=== PATIENT | female | born 1945 | race Caucasian/White ===

== ENCOUNTER 2016-04-03 11:20 | Inpatient (IN) | payer OTHER ==
[~2016-04-03] VITALS: Ht 160 cm; Wt 83.9 kg
[~2016-04-03 11:20] MED LIST: "\\\"WATER PILL\\\""; ASPI1CPM PO; LEVO25TA9; METF500T4 PO; OMEP10SU
[2016-04-03] MEDS ORDERED: IV SET PRIMARY PUMP SET 1 EA INFUS.SET MC ONE ×2 (11:58→17:16)
[2016-04-03] MEDS ORDERED: IV NS 0.9% 1,000 ML ONE (11:58)
[2016-04-03] MEDS ORDERED: TDAP [DIPH/PERTUSSIS/TET] 0.5 ML VIAL IM ONE ×2 (11:58→12:00)
[2016-04-03] MEDS ORDERED: IV SET PRIMARY 1 EA INFUS.SET MC ONE (11:58)
[2016-04-03] MEDS ORDERED: PIPERACILLIN /TAZOBACTAM 3.375 G in IV D5W 50 ML IV ONE (12:00)
[2016-04-03] MEDS ORDERED: VANCOMYCIN 1 GM in IV D5W 250 ML IV ONE (12:00)
[2016-04-03] MEDS ORDERED: IV NS 0.9% 1,000 ML BAG IV ONE (12:00)
[2016-04-03] MEDS ORDERED: MIRT15TA PO (12:07)
[2016-04-03] MEDS ORDERED: SIMV40TA5 PO (12:07)
[2016-04-03] MEDS ORDERED: LEVO50TA8 PO (12:07)
[2016-04-03 12:12] LABS: BASOPHILS # (AUTO) 0.1 /CMM (0.0-0.2); BASOPHILS % (AUTO) 0.8 % (0.0-2.0); DIFF TOTAL % 100 %; EOSINOPHILS # (AUTO) 0.3 /CMM (0.0-0.7); HEMATOCRIT 37 % (33-45); HEMOGLOBIN 12.3 g/dL (11.5-14.8); LYMPHOCYTES # (AUTO) 1.8 /CMM (0.8-4.8); MEAN CORPUSCULAR HEMOGLOBIN 28 PG (26.0-33.0); MEAN CORPUSCULAR HGB CONC 33 g/dl (31.0-36.0); MEAN CORPUSCULAR VOLUME 84 fL (82-100); MONOCYTES # (AUTO) 0.7 /CMM (0.1-1.30); MONOCYTES % (AUTO) 7.9 % (2.0-12.0); NEUTROPHILS # (AUTO) 5.5 /CMM (1.8-8.9); NEUTROPHILS % (AUTO) 66.3 % (43.0-81.0); PLATELET COUNT (AUTO) 222 /CMM (150-450); RED BLOOD CELL COUNT(AUTO) 4.39 MIL/uL (4.0-5.2); WHITE BLOOD COUNT (AUTO) 8.3 K/uL (4.3-11.0)
[2016-04-03 12:32] LABS: LACTIC ACID 0.6 mmol/L (0.4-2.0)
[2016-04-03 12:34] LABS: INR 1.07 (0.87-1.13); PROTHROMBIN TIME 11.6 SECS (9.5-12.7)
[2016-04-03 12:36] LABS: CALCIUM, SERUM 8.6 mg/dL (8.5-10.1); CREATININE 0.8 mg/dL (0.6-1.3)
[2016-04-03 15:02] VITALS: BP 112/88
[2016-04-03] MEDS ORDERED: OXYB5TAB11 PO (15:47)
[2016-04-03] MEDS ORDERED: MAGNESIUM HYDROXIDE 30 ML UDC PO PRN (16:00)
[2016-04-03] MEDS ORDERED: ONDANSETRON HCL/PF 4 MG/2 ML VIAL IVP PRN (16:00)
[2016-04-03] MEDS ORDERED: ACETAMINOPHEN 325 MG TABLET PO PRN (16:00)
[2016-04-03] MEDS ORDERED: MAG HYDROX/AL HYDROX/SIMETH 30 ML UDC PO PRN (16:00)
[2016-04-03] MEDS ORDERED: Z GUARD REMEDY 2 OZ OINT TP PRN (16:00)
[2016-04-03] MEDS ORDERED: HYDROCODONE/APAP 5/325MG 1 EACH TABLET PO PRN (16:00)
[2016-04-03] MEDS ORDERED: ZOLPIDEM TARTRATE 5 MG TABLET PO PRN (16:00)
[2016-04-03] MEDS: OXYBUTYNIN CHLORIDE 5 MG TABLET PO SCH (16:40)
[2016-04-03] MEDS: METFORMIN 500 MG TABLET PO SCH (16:41)
[2016-04-03] MEDS: AGGRENOX(ASA/DIPYRIDAMOLE) 1 CAP CPMP.12HR PO SCH (16:56)
[2016-04-03] MEDS: PIPERACILLIN /TAZOBACTAM 3.375 G in IV D5W 50 ML IV SCH (17:14)
[2016-04-03 20:00] VITALS: BP 98/56
[2016-04-03] MEDS ORDERED: INSULIN REGULAR, HUMAN 100 UNIT/ML 3 ML VIAL SQ PRN (20:00)
[2016-04-03] MEDS ORDERED: DEXTROSE 50%-WATER 50 ML DISP.SYRIN IV PRN (20:00)
[2016-04-03] MEDS: BLOOD SUGAR DIAGNOSTIC 1 EACH STRIP IN SCH (21:37)
[2016-04-03] MEDS: MIRTAZAPINE 15 MG TABLET PO SCH (21:37)
[2016-04-03] MEDS: SIMVASTATIN 40 MG TABLET PO SCH (21:37)
[2016-04-04] MEDS: PIPERACILLIN /TAZOBACTAM 3.375 G in IV D5W 50 ML IV SCH ×5 (00:22→23:03)
[2016-04-04 05:30] VITALS: BP 90/66
[2016-04-04] MEDS ORDERED: SECONDARY IV SET 1 EA INFUS.SET MC ONE (06:23)
[2016-04-04] MEDS ORDERED: IV NS 0.9% 250 ML IV ONE (06:23)
[2016-04-04] MEDS ORDERED: IV SET PRIMARY PUMP SET 1 EA INFUS.SET MC ONE (06:23)
[2016-04-04] MEDS: BLOOD SUGAR DIAGNOSTIC 1 EACH STRIP IN SCH ×4 (06:29→22:33)
[2016-04-04 07:09] LABS: BASOPHILS % (AUTO) 0.7 % (0.0-2.0); DIFF TOTAL % 100 %; EOSINOPHILS # (AUTO) 0.2 /CMM (0.0-0.7); EOSINOPHILS % (AUTO) 3.9 % (0.0-6.0); HEMATOCRIT 33 % (33-45); LYMPHOCYTES # (AUTO) 1.2 /CMM (0.8-4.8); LYMPHOCYTES % (AUTO) 21.4 % (20.0-44.0); MEAN CORPUSCULAR HEMOGLOBIN 29 PG (26.0-33.0); MEAN CORPUSCULAR HGB CONC 34 g/dl (31.0-36.0); MEAN CORPUSCULAR VOLUME 84 fL (82-100); MONOCYTES # (AUTO) 0.4 /CMM (0.1-1.30); MONOCYTES % (AUTO) 6.2 % (2.0-12.0); NEUTROPHILS % (AUTO) 67.8 % (43.0-81.0); PLATELET COUNT (AUTO) 172 /CMM (150-450); RED BLOOD CELL COUNT(AUTO) 3.85 MIL/uL (4.0-5.2); WHITE BLOOD COUNT (AUTO) 5.8 K/uL (4.3-11.0)
[2016-04-04 07:23] LABS: CALCIUM, SERUM 8.1 mg/dL (8.5-10.1); CREATININE 0.8 mg/dL (0.6-1.3); PHOSPHORUS 4.4 mg/dL (2.5-4.9); POTASSIUM 3.8 mmol/L (3.5-5.1)
[2016-04-04 08:00] VITALS: BP 103/54
[2016-04-04 08:32] VITALS: BP 103/54
[2016-04-04] MEDS: METFORMIN 500 MG TABLET PO SCH ×2 (08:41→16:07)
[2016-04-04] MEDS: OXYBUTYNIN CHLORIDE 5 MG TABLET PO SCH ×2 (08:42→16:07)
[2016-04-04] MEDS: LEVOTHYROXINE SODIUM 50 MCG TABLET PO SCH (08:42)
[2016-04-04] MEDS: AGGRENOX(ASA/DIPYRIDAMOLE) 1 CAP CPMP.12HR PO SCH ×2 (08:42→16:07)
[2016-04-04] MEDS: PANTOPRAZOLE 40 MG TABLET.DR PO SCH (08:42)
[2016-04-04] MEDS: NEOMY SULF/BACITRAC ZN/POLY 15 GM TUBE TP SCH (11:11)
[2016-04-04 16:00] VITALS: BP_SYST 100; BP_SYST 130; BP_DIAS 67; BP_DIAS 68
[2016-04-04 20:00] VITALS: BP 137/71
[2016-04-04] MEDS: SIMVASTATIN 40 MG TABLET PO SCH (22:33)
[2016-04-04] MEDS: MIRTAZAPINE 15 MG TABLET PO SCH (22:33)
[2016-04-05] MEDS: PIPERACILLIN /TAZOBACTAM 3.375 G in IV D5W 50 ML IV SCH ×2 (06:48→11:31)
[2016-04-05] MEDS: BLOOD SUGAR DIAGNOSTIC 1 EACH STRIP IN SCH ×2 (06:48→11:31)
[2016-04-05 08:00] VITALS: BP 113/67
[2016-04-05] MEDS: LEVOTHYROXINE SODIUM 50 MCG TABLET PO SCH (08:31)
[2016-04-05] MEDS: PANTOPRAZOLE 40 MG TABLET.DR PO SCH (08:31)
[2016-04-05] MEDS: AGGRENOX(ASA/DIPYRIDAMOLE) 1 CAP CPMP.12HR PO SCH (08:31)
[2016-04-05] MEDS: OXYBUTYNIN CHLORIDE 5 MG TABLET PO SCH (08:31)
[2016-04-05] MEDS: METFORMIN 500 MG TABLET PO SCH (08:31)
[2016-04-05] MEDS: NEOMY SULF/BACITRAC ZN/POLY 15 GM TUBE TP SCH (08:32)
== END 2016-04-05 13:30 | disposition home or self-care (01) | DRG 603 ==
LOC: ER 11:24 → MEDSG2 14:14 → MED 04-04 05:07
PROVIDERS: ADMIT Internal Medicine; ATTEND Internal Medicine
DX: L03.113 Cellulitis of right upper limb (principal); F03.90 Unspecified dementia, unspecified severity, without behavioral disturbance, psychotic disturbance, mood disturbance, and anxiety; S61.451A Open bite of right hand, initial encounter; W55.01XA Bitten by cat, initial encounter; Y92.009 Unspecified place in unspecified non-institutional (private) residence as the place of occurrence of the external cause; E11.9 Type 2 diabetes mellitus without complications; Z86.73 Personal history of transient ischemic attack (TIA), and cerebral infarction without residual deficits; E07.9 Disorder of thyroid, unspecified
CPT/HCPCS: 36415; 73130-TC; 80048-TC; 82962-TC; 83605-TC; 83735-TC; 84100-TC; 85025-TC; 85730-TC; 87040-TC; 87081-TC; 90715; A4606; A6402; J1815; J2543; J3370; J7030; J7050; J7060; Z7610

== ENCOUNTER 2017-02-28 11:32 | Inpatient (IN) | payer OTHER ==
[~2017-02-28] VITALS: Ht 162.6 cm; Wt 84.4 kg
[~2017-02-28 11:32] MED LIST changes: -"\\\"WATER PILL\\\""; -LEVO25TA9; +LEVO50TA8 PO; +MIRT15TA PO; -OMEP10SU; +OXYB5TAB11 PO; +SIMV40TA5 PO
[2017-02-28] MEDS ORDERED: ONDANSETRON HCL/PF 4 MG/2 ML VIAL IVP ONE (12:00)
[2017-02-28] MEDS ORDERED: HYDROMORPHONE INJ 2 MG/ML DISP.SYRIN IV ONE (12:00)
--- NOTE | 2017-02-28 12:01 | NUR ---
KATJA DT RIGHT SIDE ABDOMINAL PAIN, 09/26, NON RADITING SINCE THIS AM. PER PATIENT'S SON, PATIENT HAS NOT BEEN EATING WELL. PATIENT IS AWAKE AND ALERT, APPEARS IN NO APPARENT DISTRESS. AFEBRILE. VSS
--- NOTE | 2017-02-28 12:02 | NUR ---
EKG IN PROGRESS
--- NOTE | 2017-02-28 12:02 | NUR ---
IV ACCESSED TO [facility] 20. BLOOD SAMPLE SENT TO LAB
[2017-02-28 12:04] LABS: BASOPHILS % (AUTO) 0.6 % (0.0-2.0); EOSINOPHILS # (AUTO) 0.1 /CMM (0.0-0.7); HEMATOCRIT 37 % (33-45); HEMOGLOBIN 12.2 g/dL (11.5-14.8); LYMPHOCYTES # (AUTO) 0.9 /CMM (0.8-4.8); LYMPHOCYTES % (AUTO) 11.7 % (20.0-44.0); MEAN CORPUSCULAR HEMOGLOBIN 28 PG (26.0-33.0); MEAN CORPUSCULAR HGB CONC 33 g/dl (31.0-36.0); MEAN CORPUSCULAR VOLUME 84 fL (82-100); MONOCYTES # (AUTO) 0.6 /CMM (0.1-1.30); MONOCYTES % (AUTO) 7.8 % (2.0-12.0); NEUTROPHILS # (AUTO) 6.4 /CMM (1.8-8.9); NEUTROPHILS % (AUTO) 78.9 % (43.0-81.0); PLATELET COUNT (AUTO) 163 /CMM (150-450); RDW COEFFICIENT OF VARIATION 13.2 (11.5-15.0)
[2017-02-28] MEDS ORDERED: ONDANSETRON HCL/PF 4 MG/2 ML VIAL ONE (12:04)
[2017-02-28] MEDS ORDERED: MORPHINE SULFATE INJ 4 MG/ML DISP.SYRIN ONE (12:05)
[2017-02-28 12:18] LABS: CALCIUM, SERUM 8.7 mg/dL (8.5-10.1); CARBON DIOXIDE 30 mmol/L (21-32); CHLORIDE 103 mmol/L (98-107); CREATININE 0.8 mg/dL (0.6-1.3); GLUCOSE 132 mg/dL (74-106); SODIUM SERUM 140 mmol/L (136-145); UREA NITROGEN, BLOOD 16 mg/dL (7-18)
[2017-02-28 12:23] LABS: INR 1.09 (0.87-1.13); PROTHROMBIN TIME 11.3 SECS (9.5-12.7)
[2017-02-28 12:25] LABS: ALANINE AMINOTRANSFERASE 14 U/L (12-78); ALKALINE PHOSPHATASE 64 U/L (46-116); ASPARTATE AMINOTRANSFERASE 10 U/L (15-37); BILIRUBIN,DIRECT 0.1 mg/dL (0.0-0.2); BILIRUBIN,TOTAL 0.4 mg/dL (0.2-1.0); LIPASE 81 U/L (73-393); TOTAL PROTEIN, SERUM 6.7 g/dL (6.4-8.2)
[2017-02-28 12:29] LABS: TROPONIN I < 0.017 ng/mL (0.00-0.056)
[2017-02-28] MEDS ORDERED: MORPHINE SULFATE INJ 2 MG/ML DISP.SYRIN IV ONE (12:30)
[2017-02-28] MEDS ORDERED: RISP1TAB27 PO (12:39)
[2017-02-28] MEDS ORDERED: ESCI5TAB PO (12:39)
[2017-02-28] MEDS ORDERED: ATOR20TA PO (12:39)
[2017-02-28 12:50] LABS: APPEARANCE,URINE Clear (CLEAR); BILIRUBIN,URINE Negative (NEGATIVE); BLOOD, URINE Negative Ery/uL (NEGATIVE); COLOR,URINE Yellow (YELLOW); KETONES,URINE Negative (NEGATIVE); LEUKOCYTE ESTERASE ,URINE Negative (NEGATIVE); NITRITE, URINE Negative (NEGATIVE); PH,URINE 7.5 (5.0-8.0); PROTEIN,URINE Trace mg/dl (NEGATIVE); UGLUCOSE Negative (NEGATIVE)
[2017-02-28 12:53] LABS: BACTERIA,URINE Rare /HPF (None Seen); RBC,URINE 0-2 /HPF (0-2); SQUAMOUS EPITHELIAL CELL,UR Few /HPF (None Seen); WBC,URINE 0-2 /HPF (0-3)
--- NOTE | 2017-02-28 13:36 | NUR ---
REPORT GIVEN TO FLOOR JOANNA HERNANDEZ ZANDER
--- NOTE | 2017-02-28 13:37 | NUR ---
PATIENT TRANSPORTED TO [facility]. S
[2017-02-28 14:00] VITALS: BP 98/59
--- NOTE | 2017-02-28 14:00 | NUR ---
MS RN NOTES Patient admitted from ER in a gurney, alert, verbally responsive. Caregiver and daughter Desire at bedside. No SOB noted, no sign of distress noted. Breathing, regular, even and unlabored. Skin is soft and warm to touch. Noted sacrococcyx redness, photo taken. Safety measures in place. Endorsed to date night sitter for continuity of care.
[2017-02-28] MEDS ORDERED: ONDANSETRON HCL/PF 4 MG/2 ML VIAL IVP PRN (14:30)
[2017-02-28] MEDS ORDERED: Z GUARD REMEDY 2 OZ OINT TP PRN (14:30)
[2017-02-28] MEDS ORDERED: BISACODYL SUPP (10 MG) 10 MG/SUPP.RECT SUPP.RECT RC PRN (14:30)
[2017-02-28] MEDS ORDERED: HYDROCODONE/APAP 5/325MG 1 EACH TABLET PO PRN (14:30)
[2017-02-28] MEDS ORDERED: MAGNESIUM HYDROXIDE 30 ML UDC PO PRN (14:30)
[2017-02-28] MEDS ORDERED: ZOLPIDEM TARTRATE 5 MG TABLET PO PRN (14:30)
[2017-02-28] MEDS ORDERED: ACETAMINOPHEN 325 MG TABLET PO PRN (14:30)
[2017-02-28] MEDS ORDERED: MAG HYDROX/AL HYDROX/SIMETH 30 ML UDC PO PRN (14:30)
[2017-02-28] MEDS: POLYETHYLENE GLYCOL 3350 17 GM POWD.PACK PO SCH ×2 (14:45→21:17)
[2017-02-28] MEDS: SENNOSIDES/DOCUSATE SODIUM 1 TAB TABLET PO SCH (14:45)
[2017-02-28] MEDS: IV NS 0.9% 1,000 ML IV PRN (15:07)
[2017-02-28 16:00] VITALS: BP 90/54
--- NOTE | 2017-02-28 19:48 | NUR ---
RN OPENING NOTES PT RESTING IN BED. NO S/S OF DISTRESS OR PAIN NOTED AT THIS TIME. PT HAS R AC #20 IV RUNNING NS @75ML/HR. PT TOLERATING FLUID WELL. SAFETY PRECAUTIONS IN PLACE. BED IN LOW, LOCKED POSITION, CALL LIGHT WITHIN REACH. WILL CONTINUE TO MONITOR PT.
[2017-02-28 20:00] VITALS: BP 105/64
[2017-02-28] MEDS ORDERED: IV NS 0.9% 500 ML IV ONE (21:00)
[2017-03-01] MEDS: IV NS 0.9% 1,000 ML IV PRN (05:11)
--- NOTE | 2017-03-01 06:45 | NUR ---
RN CLOSING NOTES PT SLEEPING IN BED. NO S/S OF DISTRESS OR PAIN OVERNIGHT. PT HAS R AC #20 IV RUNNING NS @75ML/HR. PT TOLERATING FLUID WELL. ALL PT NEEDS MET. SAFETY PRECAUTIONS IN PLACE. BED IN LOW, LOCKED POSITION, CALL LIGHT WITHIN REACH. WILL ENDORSE TO DAYSHIFT NURSE FOR CONTINUITY OF CARE.
[2017-03-01 08:00] VITALS: BP 124/76
--- NOTE | 2017-03-01 08:00 | NUR ---
RN OPENING NOTES PT A&0X3 BUT VERY SLOW IN COMMUNICATION. PT TOLERATING ROOM AIR WITH NO SOB. PT WITH MINOR ABDOMINAL PAIN. PT WITH IVC AT R AC INTACT AND OPERATIONAL. BED IN LOWEST LOCKED POSITION WITH HANDRAILSX3 AND CALL BARBA WITHIN REACH. PT BRIEFED ON TODAY'S POC, PT WITHOUT CONCERNS OR COMPLAINTS AT THIS TIME.
[2017-03-01 08:30] LABS: BASOPHILS % (AUTO) 0.4 % (0.0-2.0); EOSINOPHILS # (AUTO) 0.1 /CMM (0.0-0.7); EOSINOPHILS % (AUTO) 2.2 % (0.0-6.0); HEMATOCRIT 33 % (33-45); HEMOGLOBIN 10.9 g/dL (11.5-14.8); LYMPHOCYTES # (AUTO) 1.4 /CMM (0.8-4.8); LYMPHOCYTES % (AUTO) 21.2 % (20.0-44.0); MEAN CORPUSCULAR HEMOGLOBIN 28 PG (26.0-33.0); MEAN CORPUSCULAR HGB CONC 33 g/dl (31.0-36.0); MEAN CORPUSCULAR VOLUME 86 fL (82-100); MONOCYTES # (AUTO) 0.5 /CMM (0.1-1.30); MONOCYTES % (AUTO) 7.2 % (2.0-12.0); NEUTROPHILS # (AUTO) 4.5 /CMM (1.8-8.9); PLATELET COUNT (AUTO) 139 /CMM (150-450); RDW COEFFICIENT OF VARIATION 14.1 (11.5-15.0); RED BLOOD CELL COUNT(AUTO) 3.86 MIL/uL (4.0-5.2); WHITE BLOOD COUNT (AUTO) 6.5 K/uL (4.3-11.0)
[2017-03-01 09:01] LABS: CALCIUM, SERUM 8.5 mg/dL (8.5-10.1); CARBON DIOXIDE 31 mmol/L (21-32); CHLORIDE 104 mmol/L (98-107); CREATININE 0.7 mg/dL (0.6-1.3); GLUCOSE 89 mg/dL (74-106); MAGNESIUM 1.9 mg/dL (1.8-2.4); PHOSPHORUS 3.7 mg/dL (2.5-4.9); SODIUM SERUM 139 mmol/L (136-145); UREA NITROGEN, BLOOD 13 mg/dL (7-18)
[2017-03-01] MEDS: PANTOPRAZOLE 40 MG TABLET.DR PO SCH (09:04)
[2017-03-01] MEDS: SENNOSIDES/DOCUSATE SODIUM 1 TAB TABLET PO SCH (09:04)
[2017-03-01 09:08] LABS: CHOLESTEROL 105 mg/dL (<200); HDL CHOLESTEROL 44 mg/dL (40-60); LDL 54 mg/dL (0-99); THYROID STIMULATING HORMONE 1.683 uIU/mL (0.358-3.74); TRIGLYCERIDES 55 mg/dL (30-150)
[2017-03-01] MEDS ORDERED: BISACODYL SUPP (10 MG) 10 MG/SUPP.RECT SUPP.RECT RC PRN (10:00)
[2017-03-01] MEDS ORDERED: NA PHOS,M-B/NA PHOS,DI-BA 1 EA ENEMA RC PRN ×2 (10:00→16:30)
--- NOTE | 2017-03-01 11:48 | NUR ---
WOUND CARE CONSULT: PT PRESENTS WITH SACRAL SCARRING AND BLANCHABLE REDNESS TO SACRAL AREA. CURRENT DEVON SCORE IS 15. PT ON EDWIN ISOFLEX LOW AIRLOSS BED. ALL SKIN PROTECTION MEASURES IN PLACE AND DISCUSSED WITH NURSING STAFF. WILL SEE PRN. MARQUEZ IN AGREEMENT WITH PLAN OF CARE. Addendum: 03/01/17 at 1151 by JARON BOSS WNDNU Amended: Links added.
[2017-03-01] MEDS: ESCITALOPRAM OXALATE (10 MG) 10 MG TABLET PO SCH (12:41)
--- NOTE | 2017-03-01 12:41 | NUR ---
RN NOTES. PHARMACY CONTACTED R/T AM MEDS NOT AVAILABLE. WILL ADMIN WHEN AVAILABLE
[2017-03-01 16:00] VITALS: BP 116/68
[2017-03-01] MEDS: AGGRENOX(ASA/DIPYRIDAMOLE) 1 CAP CPMP.12HR PO SCH ×2 (16:26→23:04)
--- NOTE | 2017-03-01 16:54 | NUR ---
RN NOTES. FLEET ENEMA REQUESTED BY . ADMINISTERED AT 1650.
[2017-03-01] MEDS: risperiDONE 1 MG TABLET PO SCH (18:35)
--- NOTE | 2017-03-01 18:59 | NUR ---
RN NOTES. PT OPENED BOWEL WITH A MODERATE AMOUNT OF LIQUID BROWN STOOL, ESTIMATED 200ML.
--- NOTE | 2017-03-01 19:01 | NUR ---
MS RN CLOSING NOTES. PT A&0X3 AND REMAINS VERY SLOW IN COMMUNICATION WHICH IS HER REPORTED BASELINE. PT TOLERATING ROOM AIR WITH NO SOB. PT REPORTING MINOR ABDOMINLA PAIN. PT JUST OPENED BOWEL POST FLEET ENEMA. PT WITH IVC AT R AC INTACT AND OPERATIONAL. BED IN LOWEST LOCKED POSITON WITH HANDRAILSX3 AND CALL BARBA WITHIN REACH. ALL DAY NURSE DUTIES ATTENDED TO, WILL ENDORSE TO THE NIGHT NURSE.
--- NOTE | 2017-03-01 19:35 | NUR ---
RN OPENING NOTES RECEIVED REPORT FROM DAYSHIFT RN. FOUND Pt AWAKE, RESTING IN BED. NO S/S OF ACUTE DISTRESS OR SOB NOTED. Pt IS A/OX3, WITH SOME CONFUSION, AND SLOW VERBAL RESPONSE. IV ACCESS ON RAC #20G. SAFETY MEASURES IN PLACE. BED LOW, LOCKED, HOB ELEVATED, SIDE RAILS UP, CALL LIGHT AND BEDSIDE TABLE WITHIN REACH. WILL CONTINUE TO MONITOR Pt THROUGHOUT THE NIGHT FOR SAFETY.
[2017-03-01 20:00] VITALS: BP 99/62
[2017-03-01 21:00] VITALS: BP 99/62
[2017-03-01] MEDS: POLYETHYLENE GLYCOL 3350 17 GM POWD.PACK PO SCH (22:00)
--- NOTE | 2017-03-01 22:00 | NUR ---
RN NOTES Pt REFUSED MIRALAX
--- NOTE | 2017-03-02 06:35 | NUR ---
RN CLOSING NOTES NO SIGNIFICANT CHANGES IN Pt's CONDITION DURING THE NIGHT. NO S/S OF ACUTE DISTRESS OR SOB NOTED. Pt REMAINS STABLE AT THIS TIME. ALL NEEDS MET AND ATTENDED TO. SAFETY MEASURES IN PLACE. WILL ENDORSE TO DAYSHIFT RN FOR Pt's ZANDER.
[2017-03-02] MEDS ORDERED: LEVOTHYROXINE SODIUM 50 MCG TABLET PO SCH (07:30)
--- NOTE | 2017-03-02 07:35 | NUR ---
MS RN OPENING NOTES RECEIVED PT AWAKE IN BED IN NO ACUTE SIGN OF DISTRESS. HOB ELEVATED. A/O X 3, CALMED AND QUIET WITH NO C/O PAIN OR DISCOMFORTS @ THIS TIME. ON ROOM AIR, BREATHING EVEN AND UNLABORED. PT WITH IV ACCESS ON RFA INTACT AND PATENT WITH IV FLUIDS OF NS @ 75ML RUNNING, NO SIGNS OF INFILTRATION NOTED. BED IN LOW/LOCKED POSITION WITH SIDE-RAILS UP X2. CALL LIGHT WITHIN REACH. WILL CONTINUE TO MONITOR.
[2017-03-02 08:00] VITALS: BP 132/72
[2017-03-02] MEDS: IV NS 0.9% 1,000 ML IV PRN (08:03)
[2017-03-02] MEDS: PANTOPRAZOLE 40 MG TABLET.DR PO SCH (08:04)
[2017-03-02] MEDS: SENNOSIDES/DOCUSATE SODIUM 1 TAB TABLET PO SCH (08:35)
[2017-03-02] MEDS: AGGRENOX(ASA/DIPYRIDAMOLE) 1 CAP CPMP.12HR PO SCH (08:35)
[2017-03-02] MEDS: ESCITALOPRAM OXALATE (10 MG) 10 MG TABLET PO SCH (08:36)
[2017-03-02] MEDS ORDERED: MAGNESIUM HYDROXIDE 30 ML UDC PO SCH (14:00)
[2017-03-02] MEDS ORDERED: POLYETHYLENE GLYCOL 3350 17 GM POWD.PACK PO ONE (14:00)
[2017-03-02 16:00] VITALS: BP 128/82
--- NOTE | 2017-03-02 16:35 | NUR ---
RN NOTES PT VERBALIZED THAT SHE HAD PROBLEM SWALLOWING FOOD AND PILLS BUT NO NOTED SWALLOWING PROBLEMS NOTED OBSERVED WHEN EATING AND ADMINISTRATION OF MEDICATIONS. MD MADE AWARE. PT FOR SWALLOWING EVALUATION TOMORROW (03/03/2017) TO R/O ANY SWALLOWING PROBLEMS. WILL CONTINUE TO MONITOR
[2017-03-02] MEDS: risperiDONE 1 MG TABLET PO SCH (17:23)
--- NOTE | 2017-03-02 18:18 | NUR ---
RN NOTES PT FOR DISCHARGE HOME TONIGHT, CALLED SON SIMA MICHAELS AND SAID THAT SOMEBODY FROM THE FAMILY COME AND WILL TAKE PT'S HOME TONIGHT. WILL CONTINUE TO MONITOR.
--- NOTE | 2017-03-02 19:00 | NUR ---
MS RN CLOSING NOTES PT AWAKE AND RESTING @ MODERTAE HIGH BACKREST IN BED. A/O X 3, VERBALLY RESPONSIVE, NO C/O ABDOMINAL PAIN THROUGHOUT THE DAY. ALL NEEDS AND CARE PROVIDED WELL. ON ROOM AIR, BREATHING EVEN AND UNLABORED. IV ACCESS ON RFA INTACT AND PATENT, SL ONLY. KEPT BED IN LOW/LOCKED POSITION WITH SIDE-RAILS UP X2. CALL LIGHT WITHIN REACH. PT FOR DISCHARGE TONIGHT, SON AWARE. WILL ENDORSED TO IT INFRASTRUCTURE CONSULTANT.
--- NOTE | 2017-03-02 19:30 | NUR ---
MS RN OPENING NOTES: RECEIVED PT AWAKE AND IS A/OX2-3. PT AWAITING FOR SON, SIMA, TO PICK HER UP. PT HAS DISCHARGE ORDER. PT NOT COMPLAINING OF ANY PAIN. ON ROOM AIR AND TOLERATING WELL. CALL LIGHT WITHIN PT'S REACH .BED KEPT IN LOW, LOCKED POSITION, AND SIDE RAILS X 2UP. IV ON RIGHT FOREARM AND IS PATENT AND INTACT. WILL CONTINUE TO MONITOR PT.
--- NOTE | 2017-03-02 20:02 | NUR ---
MS RN NOTES: PT DISCHARGED AND LEFT WITH SON, SIMA. ASSISTED DOWNSTAIRS WITH PHYSICIAN PRACTICE MARKET MANAGER, STEPHAN, IN WHEELCHAIR. PT LEFT IN STABLE CONDITION. IV ON R FOREARM #20G REMOVED.
[2017-03-02] MEDS ORDERED: ATORVASTATIN 10 MG TABLET PO SCH (22:00)
== END 2017-03-02 20:00 | disposition home or self-care (01) | DRG 392 ==
LOC: ER 11:34 → MED 13:52
PROVIDERS: ADMIT Internal Medicine; ATTEND Internal Medicine
DX: K59.00 Constipation, unspecified (principal); L89.151 Pressure ulcer of sacral region, stage 1; D69.6 Thrombocytopenia, unspecified; D64.9 Anemia, unspecified; E11.9 Type 2 diabetes mellitus without complications; E44.1 Mild protein-calorie malnutrition; E03.9 Hypothyroidism, unspecified; E66.9 Obesity, unspecified; Z86.73 Personal history of transient ischemic attack (TIA), and cerebral infarction without residual deficits; E78.5 Hyperlipidemia, unspecified; F03.90 Unspecified dementia, unspecified severity, without behavioral disturbance, psychotic disturbance, mood disturbance, and anxiety; I25.10 Atherosclerotic heart disease of native coronary artery without angina pectoris; F32.9 Major depressive disorder, single episode, unspecified; K21.9 Gastro-esophageal reflux disease without esophagitis; Z87.11 Personal history of peptic ulcer disease; Z90.49 Acquired absence of other specified parts of digestive tract; Z68.31 Body mass index [BMI] 31.0-31.9, adult; M51.37 Other intervertebral disc degeneration, lumbosacral region; Z74.01 Bed confinement status; Z79.84 Long term (current) use of oral hypoglycemic drugs
CPT/HCPCS: 36415; 80048-TC; 80061-TC; 80076-TC; 81000-TC; 82272-TC; 83605-TC; 83690-TC; 83735-TC; 84100-TC; 84443-TC; 84484-TC; 85025-TC; 85730-TC; 87081-TC; 97116-TC; 97530-TC; J2270; J2405; J7030; J7040